=== PATIENT | male | born 1940 | race Hispanic/Latino ===

== ENCOUNTER 2016-09-13 07:10 | Day surgery (SDC) | payer MEDICARE, BC ==
[2016-09-02 07:14] VITALS: BMI 29.5
[2016-09-13] MEDS ORDERED: Propofol 10 mg/ml Inj (20 ML) ONE (08:50)
[2016-09-13] MEDS ORDERED: Lactated Ringer's 1,000 ML IV SCH (09:30)
[2016-09-13 09:49] VITALS: O2SAT 99
[2016-09-13 10:15] VITALS: BP 138/69; PULSE 77; RESP 16; TEMP 97.6
== END 2016-09-13 10:31 | disposition home or self-care (01) ==
LOC: ENDO 07:10
PROVIDERS: ATTEND Internal Medicine Gastroenterology
DX: K21.9 Gastro-esophageal reflux disease without esophagitis (principal); K29.50 Unspecified chronic gastritis without bleeding; K44.9 Diaphragmatic hernia without obstruction or gangrene
CPT/HCPCS: 43239; 88305; 88312; 88342; J2704; J7040; J7120